=== PATIENT | male | born 1935 | race Caucasian/White ===

== ENCOUNTER → 2018-01-12 | Outpatient (CLI) | payer MEDICARE, OTHER ==
[~2018-01-12] MED LIST: REGADENOSON 0.4 MG/5 ML SYRINGE ONE
== END | disposition home or self-care (01) ==
LOC: CFH 08:26
PROVIDERS: ATTEND Internal Medicine Cardiovascular Disease
DX: I10 Essential (primary) hypertension (principal); I48.2 Chronic atrial fibrillation
CPT/HCPCS: 78452; 93017; A9502; J2785

== ENCOUNTER → 2018-02-16 | Outpatient (CLI) | payer MEDICARE, OTHER | END | disposition home or self-care (01) | LOC: CVU 07:04 | PROVIDERS: ATTEND Internal Medicine Cardiovascular Disease | DX: I08.1 Rheumatic disorders of both mitral and tricuspid valves (principal); I10 Essential (primary) hypertension; I48.2 Chronic atrial fibrillation; I27.20 Pulmonary hypertension, unspecified; J90 Pleural effusion, not elsewhere classified; I31.3 Pericardial effusion (noninflammatory); I70.208 Unspecified atherosclerosis of native arteries of extremities, other extremity | CPT/HCPCS: 0399T; 93306; 93930 ==

== ENCOUNTER 2018-04-09 09:09 | Inpatient (IN) | payer MEDICARE, OTHER ==
[~2018-04-09] VITALS: Ht 172.7 cm; Wt 63.7 kg
[2018-04-09] MEDS ORDERED: SODIUM CHLORIDE FLUSH 10ML SYR IVF ONE (09:30)
[2018-04-09] MEDS ORDERED: LASIX (09:44)
[2018-04-09] MEDS ORDERED: ELIQUIS (09:44)
[2018-04-09] MEDS ORDERED: TELMISARTAN (09:44)
[2018-04-09] MEDS ORDERED: CELECOXIB (09:44)
[2018-04-09] MEDS ORDERED: ALLOPURINOL (09:44)
[2018-04-09] MEDS ORDERED: ATORVASTATIN PO (09:44)
[2018-04-09] MEDS ORDERED: TAMS0.4C2 PO (09:44)
[2018-04-09] MEDS ORDERED: FINASTERIDE (09:44)
[2018-04-09] MEDS ORDERED: [UNRECOGNIZED DRUG - OTHER] (09:44)
[2018-04-09 09:57] LABS: BASOPHILS # (AUTO) 0.01 x10^3/uL (0-0.1); BASOPHILS % (AUTO) 0 % (0-1); EOSINOPHILS # (AUTO) 0.01 x10^3/uL (0-0.4); EOSINOPHILS % (AUTO) 0 % (1-7); LYMPHOCYTES # (AUTO) 0.62 x10^3/uL (1-3.4); LYMPHOCYTES % (AUTO) 9 % (22-44); MD NO; MEAN CORPUSCULAR HGB CONC 33.8 g/dL (33.2-36.2); MEAN CORPUSCULAR VOLUME 94.8 fL (81-97); MEAN PLATELET VOLUME 6.9 fL (7.4-10.4); MONOCYTES # (AUTO) 0.61 x10^3/uL (0.2-0.8); MONOCYTES % (AUTO) 9 % (2-9); NEUTROPHILS # (AUTO) 5.75 x10^3/uL (1.8-6.8); NEUTROPHILS % (AUTO) 82 % (42-75); PLATELET COUNT 456 x10^3/uL (130-400); RED BLOOD COUNT 3.83 x10^6/uL (4.38-5.82); RED CELL DISTRIBUTION WIDTH 15.2 % (9.4-14.8)
[2018-04-09 10:05] LABS: ALBUMIN 2.5 g/dL (3.4-5.0); ANION GAP 11 mmol/L (5-15); CHLORIDE 103 mmol/L (98-107)
[2018-04-09 10:09] LABS: INTERNATIONAL NORMALIZED RATIO 1.11 (0.93-1.1); PROTHROMBIN TIME 11.5 Seconds (9.6-11.5)
[2018-04-09 10:11] LABS: ALANINE AMINOTRANSFERASE 22 U/L (12-78); ALKALINE PHOSPHATASE 74 U/L (45-117); BILIRUBIN,TOTAL 1.5 mg/dL (0.2-1.0); CREATININE 1.09 mg/dL (0.7-1.3); TOTAL PROTEIN 7.3 g/dL (6.4-8.2)
[2018-04-09 10:13] LABS: TROPONIN I 0.126 ng/mL (0.000-0.045)
[2018-04-09] MEDS ORDERED: ASPIRIN 81 MG TABLET CHEW ONE (10:19)
[2018-04-09] MEDS ORDERED: NS + 20MEQ KCL 0 ML IV ONE (10:27)
[2018-04-09] MEDS ORDERED: FUROSEMIDE 40 MG/4 ML ONE (10:27)
[2018-04-09] MEDS ORDERED: FUROSEMIDE 40 MG/4 ML IV ONE ×2 (10:30→12:00)
[2018-04-09] MEDS ORDERED: PLEASE ENTER ALLERGIES MC SCH (10:30)
[2018-04-09] MEDS ORDERED: POTASSIUM CHLORIDE 20 MEQ in SODIUM CHLORIDE 0.9% 250 ML IV ONE (10:30)
[2018-04-09] MEDS ORDERED: ASPIRIN 81 MG TABLET CHEW PO ONE (10:30)
[2018-04-09] MEDS ORDERED: LORazepam 2 MG/ML, 1ML ONE (10:57)
[2018-04-09] MEDS ORDERED: POTASSIUM CHLORIDE 20 MEQ TAB.ER.PRT ONE (10:58)
[2018-04-09] MEDS ORDERED: SODIUM CHLORIDE FLUSH 10ML SYR IVF PRN (11:00)
[2018-04-09] MEDS ORDERED: POTASSIUM CHLORIDE 20 MEQ TAB.ER.PRT PO ONE (11:00)
[2018-04-09] MEDS ORDERED: HEPARIN 5,000 UNITS/ML, 1ML SQ SCH (11:00)
[2018-04-09] MEDS ORDERED: hydrALAzine 20 MG/ML, 1ML IVPush PRN (11:00)
[2018-04-09] MEDS ORDERED: LORazepam 2 MG/ML, 1ML IVPush ONE (11:00)
[2018-04-09] MEDS ORDERED: ACETAMINOPHEN 325 MG TABLET PO PRN (11:00)
[2018-04-09] MEDS ORDERED: LABETALOL 5MG/ML, 20ML IVPush PRN (11:00)
[2018-04-09 11:28] VITALS: BP 176/94
[2018-04-09 11:34] LABS: THYROID STIMULATING HORMONE 1.27 mIU/L (0.358-3.740)
[2018-04-09] MEDS: TAMSULOSIN 0.4 MG CAP.ER.24H PO SCH (11:52)
[2018-04-09] MEDS ORDERED: MAGNESIUM SULFATE PMX 2GM/50ML 50 ML IV ONE (12:00)
[2018-04-09] MEDS ORDERED: CEFTRIAXONE 1,000 MG in SODIUM CHLORIDE 0.9% 50 ML IV ONE (12:00)
[2018-04-09] MEDS ORDERED: MORPHINE SULFATE 4 MG/ML, 1ML IVPush ONE (12:00)
[2018-04-09] MEDS: DOXYCYCLINE 100MG TABLET PO SCH ×2 (12:40→21:18)
[2018-04-09] MEDS ORDERED: FINA5TAB4 PO (13:13)
[2018-04-09] MEDS ORDERED: TELM80TA PO (13:13)
[2018-04-09] MEDS ORDERED: APIX2.5T PO (13:13)
[2018-04-09] MEDS ORDERED: ATOR-2 PO (13:14)
[2018-04-09 13:18] VITALS: BP 158/77
[2018-04-09] MEDS: LOSARTAN 50MG TABLET PO SCH (14:48)
[2018-04-09 16:05] LABS: TROPONIN I 0.601 ng/mL (0.000-0.045)
[2018-04-09 19:46] VITALS: BP 143/79
[2018-04-09] MEDS ORDERED: APIXABAN 2.5 MG TABLET PO SCH (21:00)
[2018-04-09] MEDS ORDERED: ATORVASTATIN 40 MG TABLET PO SCH (21:00)
[2018-04-09] MEDS: APIXABAN 2.5 MG TABLET PO SCH (21:00)
[2018-04-09] MEDS: ATORVASTATIN 40 MG TABLET PO SCH (21:19)
[2018-04-09 21:49] LABS: TROPONIN I 0.509 ng/mL (0.000-0.045)
[2018-04-10 03:11] VITALS: BP 156/84
[2018-04-10 05:08] LABS: BASOPHILS # (AUTO) 0.05 x10^3/uL (0-0.1); BASOPHILS % (AUTO) 1 % (0-1); EOSINOPHILS # (AUTO) 0.11 x10^3/uL (0-0.4); EOSINOPHILS % (AUTO) 2 % (1-7); LYMPHOCYTES # (AUTO) 0.77 x10^3/uL (1-3.4); LYMPHOCYTES % (AUTO) 13 % (22-44); MD NO; MEAN CORPUSCULAR HEMOGLOBIN 30.5 pg (27.5-34.5); MEAN CORPUSCULAR HGB CONC 32.6 g/dL (33.2-36.2); MEAN CORPUSCULAR VOLUME 93.6 fL (81-97); MEAN PLATELET VOLUME 7.1 fL (7.4-10.4); MONOCYTES # (AUTO) 0.75 x10^3/uL (0.2-0.8); MONOCYTES % (AUTO) 12 % (2-9); NEUTROPHILS # (AUTO) 4.37 x10^3/uL (1.8-6.8); NEUTROPHILS % (AUTO) 72 % (42-75); PLATELET COUNT 373 x10^3/uL (130-400); RED BLOOD COUNT 3.37 x10^6/uL (4.38-5.82); RED CELL DISTRIBUTION WIDTH 15.3 % (9.4-14.8)
[2018-04-10 05:10] LABS: ANION GAP 8 mmol/L (5-15); CALCIUM 8.3 mg/dL (8.5-10.1); CHLORIDE 103 mmol/L (98-107); CHOLESTEROL, TOTAL 79 mg/dL (140-239); CREATININE 1.11 mg/dL (0.7-1.3); TRIGLYCERIDES 78 mg/dL (50-200); VLDL CHOLESTEROL 16 mg/dL (0-25)
[2018-04-10 05:12] LABS: HDL CHOL % 33 % (26-37); HDL CHOLESTEROL (DIRECT) 26 mg/dL (40-60); LDL CHOLESTEROL,CALCULATED 37 mg/dL (54-169); LDL/HDL RATIO 1.4 (0.5-3.0)
[2018-04-10 06:53] VITALS: BP 164/73
[2018-04-10] MEDS: FINASTERIDE 5 MG TABLET PO SCH ×2 (07:23→07:57)
[2018-04-10] MEDS: APIXABAN 2.5 MG TABLET PO SCH ×3 (07:23→21:34)
[2018-04-10] MEDS: TAMSULOSIN 0.4 MG CAP.ER.24H PO SCH (07:57)
[2018-04-10] MEDS: FUROSEMIDE 40 MG/4 ML IV SCH ×2 (07:57→17:20)
[2018-04-10] MEDS: DOXYCYCLINE 100MG TABLET PO SCH ×2 (07:58→21:00)
[2018-04-10] MEDS: POTASSIUM CHLORIDE 20 MEQ TAB.ER.PRT PO SCH ×2 (07:58→17:20)
[2018-04-10] MEDS: LOSARTAN 50MG TABLET PO SCH (08:00)
[2018-04-10] MEDS ORDERED: FINASTERIDE 5 MG TABLET PO SCH (09:00)
[2018-04-10] MEDS ORDERED: VALSARTAN 320 MG TABLET PO SCH (09:00)
[2018-04-10 12:37] VITALS: BP 159/64
[2018-04-10 17:19] VITALS: BP 155/76
[2018-04-10 19:09] VITALS: BP 136/68
[2018-04-10] MEDS: ATORVASTATIN 40 MG TABLET PO SCH (21:34)
[2018-04-11 02:14] VITALS: BP 150/64
[2018-04-11 05:56] LABS: BASOPHILS # (AUTO) 0.02 x10^3/uL (0-0.1); BASOPHILS % (AUTO) 0 % (0-1); EOSINOPHILS # (AUTO) 0.15 x10^3/uL (0-0.4); EOSINOPHILS % (AUTO) 3 % (1-7); LYMPHOCYTES # (AUTO) 1.03 x10^3/uL (1-3.4); LYMPHOCYTES % (AUTO) 18 % (22-44); MD NO; MEAN CORPUSCULAR HEMOGLOBIN 31.7 pg (27.5-34.5); MEAN CORPUSCULAR HGB CONC 33.6 g/dL (33.2-36.2); MEAN CORPUSCULAR VOLUME 94.2 fL (81-97); MEAN PLATELET VOLUME 7.4 fL (7.4-10.4); MONOCYTES # (AUTO) 0.57 x10^3/uL (0.2-0.8); MONOCYTES % (AUTO) 10 % (2-9); NEUTROPHILS # (AUTO) 4.12 x10^3/uL (1.8-6.8); NEUTROPHILS % (AUTO) 70 % (42-75); PLATELET COUNT 394 x10^3/uL (130-400); RED BLOOD COUNT 3.61 x10^6/uL (4.38-5.82); RED CELL DISTRIBUTION WIDTH 15.2 % (9.4-14.8)
[2018-04-11 06:06] LABS: ANION GAP 7 mmol/L (5-15); CALCIUM 8.5 mg/dL (8.5-10.1); CHLORIDE 102 mmol/L (98-107); CREATININE 1.11 mg/dL (0.7-1.3)
[2018-04-11 06:35] VITALS: BP 163/72
[2018-04-11] MEDS: APIXABAN 2.5 MG TABLET PO SCH ×2 (09:00→20:25)
[2018-04-11] MEDS: FINASTERIDE 5 MG TABLET PO SCH (09:00)
[2018-04-11] MEDS: POTASSIUM CHLORIDE 20 MEQ TAB.ER.PRT PO SCH ×2 (09:00→17:26)
[2018-04-11] MEDS: LOSARTAN 50MG TABLET PO SCH (09:00)
[2018-04-11] MEDS: DOXYCYCLINE 100MG TABLET PO SCH ×2 (09:00→20:25)
[2018-04-11] MEDS: TAMSULOSIN 0.4 MG CAP.ER.24H PO SCH (09:00)
[2018-04-11] MEDS: FUROSEMIDE 40 MG/4 ML IV SCH ×2 (09:01→17:25)
[2018-04-11] MEDS ORDERED: MAGNESIUM SULFATE PMX 2GM/50ML 50 ML IV ONE (12:00)
[2018-04-11 12:45] VITALS: BP 134/78
[2018-04-11 19:34] VITALS: BP 126/73
[2018-04-11] MEDS: ATORVASTATIN 40 MG TABLET PO SCH (20:25)
[2018-04-12 01:13] VITALS: BP 160/77
[2018-04-12 07:54] VITALS: BP 167/80
[2018-04-12] MEDS: POTASSIUM CHLORIDE 20 MEQ TAB.ER.PRT PO SCH (08:43)
[2018-04-12] MEDS: FUROSEMIDE 40 MG/4 ML IV SCH (08:43)
[2018-04-12] MEDS: FINASTERIDE 5 MG TABLET PO SCH (08:43)
[2018-04-12] MEDS: LOSARTAN 50MG TABLET PO SCH (08:44)
[2018-04-12] MEDS: APIXABAN 2.5 MG TABLET PO SCH (08:44)
[2018-04-12] MEDS: TAMSULOSIN 0.4 MG CAP.ER.24H PO SCH (08:44)
[2018-04-12] MEDS: DOXYCYCLINE 100MG TABLET PO SCH (08:46)
[2018-04-12] MEDS ORDERED: SENNA/DOCUSATE TABLET PO SCH (21:00)
== END 2018-04-12 12:20 | disposition home or self-care (01) | DRG 291 ==
LOC: ED 10:57 → EDIP 10:58 → 5SO 11:20 → DCLOUNGE 04-12 12:05
PROVIDERS: ADMIT Internal Medicine; ATTEND Internal Medicine
DX: I11.0 Hypertensive heart disease with heart failure (principal); J96.01 Acute respiratory failure with hypoxia; J18.9 Pneumonia, unspecified organism; E43 Unspecified severe protein-calorie malnutrition; E87.6 Hypokalemia; I48.2 Chronic atrial fibrillation; I50.23 Acute on chronic systolic (congestive) heart failure; G30.9 Alzheimer's disease, unspecified; F02.80 Dementia in other diseases classified elsewhere, unspecified severity, without behavioral disturbance, psychotic disturbance, mood disturbance, and anxiety; E78.00 Pure hypercholesterolemia, unspecified; R33.9 Retention of urine, unspecified; I08.3 Combined rheumatic disorders of mitral, aortic and tricuspid valves; I27.20 Pulmonary hypertension, unspecified; Z53.20 Procedure and treatment not carried out because of patient's decision for unspecified reasons; M10.9 Gout, unspecified; N40.0 Benign prostatic hyperplasia without lower urinary tract symptoms; Z68.21 Body mass index [BMI] 21.0-21.9, adult; Z87.01 Personal history of pneumonia (recurrent); Z79.01 Long term (current) use of anticoagulants; Z79.899 Other long term (current) drug therapy; Z98.49 Cataract extraction status, unspecified eye; Z98.42 Cataract extraction status, left eye; Z98.41 Cataract extraction status, right eye
CPT/HCPCS: 36415; 36600; 71045; 80048; 80053; 80061; 82803; 83735; 83880; 84100; 84443; 84484; 85025; 85610; 85730; 93005; 93306; 96374; 96375; 99291; G0378; J0696; J1644; J1940; J2060; J3475

== ENCOUNTER 2018-04-13 14:56 | Inpatient (IN) | payer MEDICARE, OTHER ==
[~2018-04-13] VITALS: Ht 172.7 cm; Wt 59.0 kg
[~2018-04-13 14:56] MED LIST changes: +ALLOPURINOL; +APIX2.5T PO; +ATOR-2 PO; +ATORVASTATIN PO; +CELECOXIB; +ELIQUIS; +FINA5TAB4 PO; +FINASTERIDE; +LASIX; -REGADENOSON 0.4 MG/5 ML SYRINGE ONE; +TAMS0.4C2 PO; +TELM80TA PO; +TELMISARTAN; +[UNRECOGNIZED DRUG - OTHER]
[2018-04-13 16:39] LABS: BASOPHILS # (AUTO) 0.05 x10^3/uL (0-0.1); BASOPHILS % (AUTO) 1 % (0-1); EOSINOPHILS # (AUTO) 0.06 x10^3/uL (0-0.4); EOSINOPHILS % (AUTO) 1 % (1-7); LYMPHOCYTES # (AUTO) 1.09 x10^3/uL (1-3.4); LYMPHOCYTES % (AUTO) 23 % (22-44); MD NO; MEAN CORPUSCULAR HEMOGLOBIN 31.3 pg (27.5-34.5); MEAN CORPUSCULAR HGB CONC 33.3 g/dL (33.2-36.2); MEAN PLATELET VOLUME 7.2 fL (7.4-10.4); MONOCYTES # (AUTO) 0.66 x10^3/uL (0.2-0.8); MONOCYTES % (AUTO) 14 % (2-9); NEUTROPHILS # (AUTO) 2.81 x10^3/uL (1.8-6.8); NEUTROPHILS % (AUTO) 60 % (42-75); PLATELET COUNT 463 x10^3/uL (130-400); RED CELL DISTRIBUTION WIDTH 15.3 % (9.4-14.8)
[2018-04-13 16:44] LABS: ALANINE AMINOTRANSFERASE 21 U/L (12-78); ALBUMIN 2.2 g/dL (3.4-5.0); ANION GAP 10 mmol/L (5-15); CALCIUM 8.8 mg/dL (8.5-10.1); CHLORIDE 101 mmol/L (98-107); CREATININE 1.14 mg/dL (0.7-1.3)
[2018-04-13 16:47] LABS: ALKALINE PHOSPHATASE 60 U/L (45-117); BILIRUBIN,TOTAL 0.8 mg/dL (0.2-1.0); TOTAL PROTEIN 6.6 g/dL (6.4-8.2)
[2018-04-13] MEDS ORDERED: ACETAMINOPHEN 325 MG TABLET PO PRN (19:00)
[2018-04-13] MEDS ORDERED: BISACODYL 10 MG SUPP PR PRN (19:00)
[2018-04-13] MEDS ORDERED: ONDANSETRON ODT 4 MG PO PRN (19:00)
[2018-04-13] MEDS ORDERED: POLYETHYLENE GLYCOL 17 GM PACKET PO PRN (19:00)
[2018-04-13] MEDS ORDERED: FUROSEMIDE 20 MG/2 ML ONE (19:37)
[2018-04-13] MEDS: FUROSEMIDE 20 MG/2 ML IV SCH (19:44)
[2018-04-13 20:20] VITALS: BP 160/81
[2018-04-13 20:49] LABS: MICROSCOPIC AUTO
[2018-04-13 20:50] LABS: CULTURE INDICATED? NO
[2018-04-13] MEDS: SODIUM CHLORIDE FLUSH 10ML SYR IVF SCH (21:42)
[2018-04-13] MEDS: ATORVASTATIN 80 MG TABLET PO SCH (21:42)
[2018-04-13] MEDS: APIXABAN 2.5 MG TABLET PO SCH (21:42)
[2018-04-14 00:59] VITALS: BP 135/79
[2018-04-14 04:21] LABS: BASOPHILS # (AUTO) 0.06 x10^3/uL (0-0.1); BASOPHILS % (AUTO) 1 % (0-1); EOSINOPHILS # (AUTO) 0.05 x10^3/uL (0-0.4); EOSINOPHILS % (AUTO) 1 % (1-7); LYMPHOCYTES # (AUTO) 0.83 x10^3/uL (1-3.4); LYMPHOCYTES % (AUTO) 17 % (22-44); MD NO; MEAN CORPUSCULAR HGB CONC 32.9 g/dL (33.2-36.2); MEAN CORPUSCULAR VOLUME 94.2 fL (81-97); MEAN PLATELET VOLUME 7.2 fL (7.4-10.4); MONOCYTES # (AUTO) 0.64 x10^3/uL (0.2-0.8); MONOCYTES % (AUTO) 13 % (2-9); NEUTROPHILS # (AUTO) 3.24 x10^3/uL (1.8-6.8); NEUTROPHILS % (AUTO) 67 % (42-75); PLATELET COUNT 448 x10^3/uL (130-400); RED CELL DISTRIBUTION WIDTH 15.2 % (9.4-14.8)
[2018-04-14 04:35] LABS: ALBUMIN 2.2 g/dL (3.4-5.0); ANION GAP 10 mmol/L (5-15); CALCIUM 8.6 mg/dL (8.5-10.1); CHLORIDE 100 mmol/L (98-107)
[2018-04-14 04:41] LABS: ALANINE AMINOTRANSFERASE 21 U/L (12-78); ALKALINE PHOSPHATASE 56 U/L (45-117); CREATININE 1.09 mg/dL (0.7-1.3); TOTAL PROTEIN 6.4 g/dL (6.4-8.2)
[2018-04-14 07:56] VITALS: BP 148/73
[2018-04-14] MEDS: SENNA/DOCUSATE TABLET PO SCH (09:00)
[2018-04-14] MEDS: TAMSULOSIN 0.4 MG CAP.ER.24H PO SCH (10:16)
[2018-04-14] MEDS: SODIUM CHLORIDE FLUSH 10ML SYR IVF SCH ×2 (10:16→20:18)
[2018-04-14] MEDS: FUROSEMIDE 20 MG/2 ML IV SCH ×2 (10:16→18:12)
[2018-04-14] MEDS: FINASTERIDE 5 MG TABLET PO SCH (10:17)
[2018-04-14] MEDS: APIXABAN 2.5 MG TABLET PO SCH ×2 (10:17→20:16)
[2018-04-14] MEDS: LOSARTAN 50MG TABLET PO SCH (10:17)
[2018-04-14 13:26] VITALS: BP 138/57
[2018-04-14] MEDS ORDERED: AMLO10TA6 PO (14:48)
[2018-04-14] MEDS ORDERED: OMEP-110 PO (14:48)
[2018-04-14] MEDS ORDERED: FURO-92 PO (14:48)
[2018-04-14] MEDS ORDERED: ALLO300T PO (14:48)
[2018-04-14 18:53] VITALS: BP 147/87
[2018-04-14] MEDS: ATORVASTATIN 80 MG TABLET PO SCH (20:16)
[2018-04-15 03:40] VITALS: BP 141/79
[2018-04-15 03:59] LABS: BASOPHILS # (AUTO) 0.02 x10^3/uL (0-0.1); BASOPHILS % (AUTO) 0 % (0-1); EOSINOPHILS # (AUTO) 0.05 x10^3/uL (0-0.4); EOSINOPHILS % (AUTO) 1 % (1-7); LYMPHOCYTES # (AUTO) 1.05 x10^3/uL (1-3.4); LYMPHOCYTES % (AUTO) 17 % (22-44); MD NO; MEAN CORPUSCULAR HEMOGLOBIN 31.7 pg (27.5-34.5); MEAN CORPUSCULAR HGB CONC 33.5 g/dL (33.2-36.2); MEAN CORPUSCULAR VOLUME 94.6 fL (81-97); MEAN PLATELET VOLUME 7.3 fL (7.4-10.4); MONOCYTES # (AUTO) 0.81 x10^3/uL (0.2-0.8); MONOCYTES % (AUTO) 13 % (2-9); NEUTROPHILS # (AUTO) 4.25 x10^3/uL (1.8-6.8); NEUTROPHILS % (AUTO) 69 % (42-75); PLATELET COUNT 427 x10^3/uL (130-400); RED BLOOD COUNT 3.65 x10^6/uL (4.38-5.82); RED CELL DISTRIBUTION WIDTH 15.6 % (9.4-14.8)
[2018-04-15 04:07] LABS: ANION GAP 10 mmol/L (5-15); CALCIUM 8.8 mg/dL (8.5-10.1); CHLORIDE 98 mmol/L (98-107); CREATININE 1.11 mg/dL (0.7-1.3)
[2018-04-15] MEDS: LOSARTAN 50MG TABLET PO SCH (07:50)
[2018-04-15] MEDS: TAMSULOSIN 0.4 MG CAP.ER.24H PO SCH (07:50)
[2018-04-15] MEDS: SENNA/DOCUSATE TABLET PO SCH (07:50)
[2018-04-15] MEDS: AMLODIPINE 10 MG TAB PO SCH (07:50)
[2018-04-15] MEDS: OMEPRAZOLE 20 MG CAPSULE.DR PO SCH (07:50)
[2018-04-15] MEDS: APIXABAN 2.5 MG TABLET PO SCH ×2 (07:50→20:48)
[2018-04-15] MEDS: ALLOPURINOL 300 MG TABLET PO SCH (07:50)
[2018-04-15] MEDS: FINASTERIDE 5 MG TABLET PO SCH (07:50)
[2018-04-15] MEDS: FUROSEMIDE 20 MG/2 ML IV SCH (07:51)
[2018-04-15] MEDS: SODIUM CHLORIDE FLUSH 10ML SYR IVF SCH ×2 (07:51→20:48)
[2018-04-15 08:00] VITALS: BP_SYST 139; BP_SYST 150; BP_DIAS 70; BP_DIAS 83
[2018-04-15] MEDS ORDERED: POTASSIUM CHLORIDE 20 MEQ TAB.ER.PRT PO ONE (12:30)
[2018-04-15 13:23] VITALS: BP 134/75
[2018-04-15 20:00] VITALS: BP 107/57
[2018-04-15] MEDS: ATORVASTATIN 80 MG TABLET PO SCH (20:48)
[2018-04-16 02:00] VITALS: BP 121/61
[2018-04-16 04:56] LABS: CHLORIDE 97 mmol/L (98-107)
[2018-04-16 05:02] LABS: ANION GAP 10 mmol/L (5-15); CALCIUM 8.4 mg/dL (8.5-10.1); CREATININE 1.33 mg/dL (0.7-1.3)
[2018-04-16 07:32] VITALS: BP 128/70
[2018-04-16] MEDS: TAMSULOSIN 0.4 MG CAP.ER.24H PO SCH (08:39)
[2018-04-16] MEDS: FINASTERIDE 5 MG TABLET PO SCH (08:39)
[2018-04-16] MEDS: OMEPRAZOLE 20 MG CAPSULE.DR PO SCH (08:39)
[2018-04-16] MEDS: ALLOPURINOL 300 MG TABLET PO SCH (08:40)
[2018-04-16] MEDS: LOSARTAN 50MG TABLET PO SCH (08:40)
[2018-04-16] MEDS: APIXABAN 2.5 MG TABLET PO SCH (08:40)
[2018-04-16] MEDS: AMLODIPINE 10 MG TAB PO SCH (08:40)
[2018-04-16] MEDS: SENNA/DOCUSATE TABLET PO SCH (08:44)
[2018-04-16] MEDS ORDERED: FUROSEMIDE 40 MG TABLET PO SCH (09:00)
[2018-04-16] MEDS: SODIUM CHLORIDE FLUSH 10ML SYR IVF SCH (09:00)
[2018-04-16 13:02] VITALS: BP 99/59
[2018-04-16] MEDS ORDERED: FURO40TA6 PO (14:43)
[2018-04-17] MEDS ORDERED: FUROSEMIDE 40 MG TABLET PO SCH (09:00)
== END 2018-04-16 16:30 | disposition home or self-care (01) | DRG 291 ==
LOC: ED 15:36 → EDIP 17:36 → 4WST 19:52 → DCLOUNGE 04-16 16:20
PROVIDERS: ADMIT Internal Medicine; ATTEND Internal Medicine
DX: I11.0 Hypertensive heart disease with heart failure (principal); G93.41 Metabolic encephalopathy; J96.21 Acute and chronic respiratory failure with hypoxia; E43 Unspecified severe protein-calorie malnutrition; D68.69 Other thrombophilia; Z68.1 Body mass index [BMI] 19.9 or less, adult; I50.33 Acute on chronic diastolic (congestive) heart failure; I48.2 Chronic atrial fibrillation; I27.20 Pulmonary hypertension, unspecified; D64.9 Anemia, unspecified; E78.00 Pure hypercholesterolemia, unspecified; G30.9 Alzheimer's disease, unspecified; F02.80 Dementia in other diseases classified elsewhere, unspecified severity, without behavioral disturbance, psychotic disturbance, mood disturbance, and anxiety; M10.9 Gout, unspecified; N40.0 Benign prostatic hyperplasia without lower urinary tract symptoms; Z79.01 Long term (current) use of anticoagulants; Z86.73 Personal history of transient ischemic attack (TIA), and cerebral infarction without residual deficits
CPT/HCPCS: 36415; 36600; 70450; 71045; 80048; 80053; 80307; 81001; 82140; 82803; 83605; 83735; 83880; 85025; 87040; 93005; 99285; G0378; 92523-GN; J1940

== ENCOUNTER 2018-04-16 20:30 | Inpatient (IN) | payer MEDICARE, OTHER ==
[~2018-04-16] VITALS: Ht 172.7 cm; Wt 73.0 kg
[~2018-04-16 20:30] MED LIST changes: +ALLO300T PO; +AMLO10TA6 PO; +FURO-92 PO; +FURO40TA6 PO; +OMEP-110 PO
[2018-04-16 21:35] LABS: BASOPHILS # (AUTO) 0.07 x10^3/uL (0-0.1); BASOPHILS % (AUTO) 1 % (0-1); EOSINOPHILS % (AUTO) 2 % (1-7); LYMPHOCYTES # (AUTO) 1.69 x10^3/uL (1-3.4); LYMPHOCYTES % (AUTO) 24 % (22-44); MD NO; MEAN CORPUSCULAR HEMOGLOBIN 30.5 pg (27.5-34.5); MEAN CORPUSCULAR HGB CONC 32.7 g/dL (33.2-36.2); MEAN CORPUSCULAR VOLUME 93.2 fL (81-97); MEAN PLATELET VOLUME 7.3 fL (7.4-10.4); MONOCYTES # (AUTO) 0.82 x10^3/uL (0.2-0.8); MONOCYTES % (AUTO) 12 % (2-9); NEUTROPHILS # (AUTO) 4.42 x10^3/uL (1.8-6.8); NEUTROPHILS % (AUTO) 62 % (42-75); PLATELET COUNT 464 x10^3/uL (130-400); RED BLOOD COUNT 3.73 x10^6/uL (4.38-5.82); RED CELL DISTRIBUTION WIDTH 15.9 % (9.4-14.8)
[2018-04-16 21:46] LABS: ALBUMIN 2.3 g/dL (3.4-5.0); ANION GAP 11 mmol/L (5-15); CALCIUM 8.7 mg/dL (8.5-10.1); CHLORIDE 96 mmol/L (98-107); CREATININE 1.83 mg/dL (0.7-1.3)
[2018-04-16 21:50] LABS: TROPONIN I 0.039 ng/mL (0.000-0.045)
[2018-04-16 23:22] VITALS: BP 123/64
[2018-04-17] MEDS ORDERED: ACETAMINOPHEN 325 MG TABLET PO PRN
[2018-04-17] MEDS ORDERED: hydrALAzine 20 MG/ML, 1ML IVPush PRN
[2018-04-17] MEDS ORDERED: ONDANSETRON ODT 4 MG PO PRN
[2018-04-17] MEDS ORDERED: DOCUSATE 100 MG CAPSULE PO PRN
[2018-04-17 02:01] VITALS: BP 110/62
[2018-04-17 03:52] LABS: TROPONIN I 0.046 ng/mL (0.000-0.045)
[2018-04-17 07:28] VITALS: BP 120/55
[2018-04-17] MEDS: OMEPRAZOLE 20 MG CAPSULE.DR PO SCH (08:18)
[2018-04-17] MEDS: FINASTERIDE 5 MG TABLET PO SCH (08:18)
[2018-04-17] MEDS: APIXABAN 2.5 MG TABLET PO SCH ×2 (08:19→20:38)
[2018-04-17] MEDS: TAMSULOSIN 0.4 MG CAP.ER.24H PO SCH (08:19)
[2018-04-17] MEDS: FUROSEMIDE 40 MG TABLET PO SCH (08:19)
[2018-04-17] MEDS: AMLODIPINE 10 MG TAB PO SCH (08:19)
[2018-04-17] MEDS ORDERED: TEMPLATE NON-FORMULARY MED. (Telmisartan** (Micardis**) 80 MG) PO SCH (09:00)
[2018-04-17 10:00] LABS: TROPONIN I 0.034 ng/mL (0.000-0.045)
[2018-04-17] MEDS ORDERED: VALSARTAN 160 MG TABLET PO SCH (11:10)
[2018-04-17 12:32] VITALS: BP 112/65
[2018-04-17 20:30] VITALS: BP 109/63
[2018-04-17] MEDS ORDERED: ATORVASTATIN 80 MG TABLET PO SCH (21:00)
[2018-04-18 01:35] VITALS: BP 110/55
[2018-04-18 05:41] LABS: BASOPHILS # (AUTO) 0.05 x10^3/uL (0-0.1); BASOPHILS % (AUTO) 1 % (0-1); EOSINOPHILS # (AUTO) 0.13 x10^3/uL (0-0.4); EOSINOPHILS % (AUTO) 3 % (1-7); LYMPHOCYTES # (AUTO) 1.36 x10^3/uL (1-3.4); LYMPHOCYTES % (AUTO) 29 % (22-44); MD NO; MEAN CORPUSCULAR HEMOGLOBIN 30.1 pg (27.5-34.5); MEAN CORPUSCULAR HGB CONC 31.8 g/dL (33.2-36.2); MEAN CORPUSCULAR VOLUME 94.7 fL (81-97); MEAN PLATELET VOLUME 7.7 fL (7.4-10.4); MONOCYTES # (AUTO) 0.59 x10^3/uL (0.2-0.8); MONOCYTES % (AUTO) 13 % (2-9); NEUTROPHILS # (AUTO) 2.63 x10^3/uL (1.8-6.8); NEUTROPHILS % (AUTO) 55 % (42-75); PLATELET COUNT 403 x10^3/uL (130-400); RED BLOOD COUNT 3.42 x10^6/uL (4.38-5.82); RED CELL DISTRIBUTION WIDTH 15.9 % (9.4-14.8)
[2018-04-18 05:52] LABS: ANION GAP 7 mmol/L (5-15); CALCIUM 8.9 mg/dL (8.5-10.1); CHLORIDE 101 mmol/L (98-107)
[2018-04-18 05:53] LABS: CREATININE 1.57 mg/dL (0.7-1.3)
[2018-04-18 06:39] VITALS: BP 132/70
[2018-04-18 08:24] VITALS: BP 110/70
[2018-04-18] MEDS: FINASTERIDE 5 MG TABLET PO SCH (08:26)
[2018-04-18] MEDS: TAMSULOSIN 0.4 MG CAP.ER.24H PO SCH (08:27)
[2018-04-18] MEDS: APIXABAN 2.5 MG TABLET PO SCH (08:27)
[2018-04-18] MEDS: AMLODIPINE 10 MG TAB PO SCH (08:27)
[2018-04-18] MEDS: OMEPRAZOLE 20 MG CAPSULE.DR PO SCH (08:27)
[2018-04-18] MEDS: FUROSEMIDE 40 MG TABLET PO SCH (08:28)
[2018-04-18] MEDS ORDERED: BISACODYL 10 MG SUPP PR PRN (11:30)
[2018-04-18] MEDS ORDERED: LACTULOSE 20 GM/30 ML UDC PO PRN (11:30)
[2018-04-18 12:05] VITALS: BP 112/74
[2018-04-18] MEDS ORDERED: SENNA/DOCUSATE TABLET PO SCH (21:00)
[2018-04-18] MEDS ORDERED: SENNOSIDES 8.8 MG/5 ML ORAL SOL NG SCH (21:00)
[2018-04-19] MEDS ORDERED: DOCUSATE 100 MG CAPSULE PO SCH (09:00)
[2018-04-19] MEDS ORDERED: DOCUSATE 50 MG/5 ML, 10ML UDC NG SCH (09:00)
== END 2018-04-18 16:33 | DRG 73 ==
LOC: ED 21:33 → 5SO 22:23
PROVIDERS: ADMIT Internal Medicine; ATTEND Internal Medicine
DX: G90.9 Disorder of the autonomic nervous system, unspecified (principal); N17.0 Acute kidney failure with tubular necrosis; I50.32 Chronic diastolic (congestive) heart failure; D68.59 Other primary thrombophilia; I48.2 Chronic atrial fibrillation; R09.02 Hypoxemia; D64.9 Anemia, unspecified; E78.00 Pure hypercholesterolemia, unspecified; G30.9 Alzheimer's disease, unspecified; I11.0 Hypertensive heart disease with heart failure; I27.20 Pulmonary hypertension, unspecified; I45.81 Long QT syndrome; N40.0 Benign prostatic hyperplasia without lower urinary tract symptoms; Z66 Do not resuscitate; Z79.01 Long term (current) use of anticoagulants; Z87.891 Personal history of nicotine dependence; I95.9 Hypotension, unspecified; F02.80 Dementia in other diseases classified elsewhere, unspecified severity, without behavioral disturbance, psychotic disturbance, mood disturbance, and anxiety; M10.9 Gout, unspecified; R73.9 Hyperglycemia, unspecified
CPT/HCPCS: 36415; 70450; 71045; 80048; 82040; 84484; 85025; 93005; 99285; G0378